=== PATIENT | female | born 1985 | race Hispanic/Latino ===

== ENCOUNTER 2017-11-26 00:39 | Emergency (ER) | payer BC ==
--- NOTE | 2017-11-26 01:23 | ED PDOC ---
HPI: Female Pain Time Seen by Provider: 11/26/17 00:48 Chief Complaint (Nursing): Female Genitourinary Chief Complaint (Provider): Possible History Per: Patient History/Exam Limitations: no limitations Onset/Duration Of Symptoms: Days (3 days) Current Symptoms Are (Timing): Still Present Additional Complaint(s): 32 yo female with a ,P:0, A:0, presents to the ED complaining of vaginal bleeding and cramping, onset of 3 days ago. Patient reports the pain intensifying last night and states that even though she soaked through one pad, she was still having more bleeding. Patient currently states that the pain and bleeding are starting to resolve, and notes that the pain was worse on the right side of her abdomen prior. She denies any nausea, vomiting, or urinary symptoms. Past Medical History Reviewed: Historical Data, Nursing Documentation, Vital Signs Vital Signs: Last Vital Signs Temp 98.5 F 11/26/17 00:52 Pulse 75 11/26/17 00:52 Resp 16 11/26/17 00:52 BP 120/80 11/26/17 00:52 Pulse Ox 100 11/26/17 00:52 - Medical History PMH: No Chronic Diseases - Surgical History Surgical History: No Surg Hx - Family History Family History: States: Unknown Family Hx - Living Arrangements Living Arrangements: With Family - Social History Current smoker - smoking cessation education provided: No Ex-Smoker (has not smoked in the last 12 months): No Alcohol: None Drugs: Denies - Allergies Allergies/Adverse Reactions: Allergies Allergy/AdvReac Type Severity Reaction Status Date / Time No Known Allergies Allergy Verified 11/26/17 00:52 Review of Systems ROS Statement: Except As Marked, All Systems Reviewed And Found Negative Gastrointestinal: Positive for: Abdominal Pain. Negative for: Nausea, Vomiting , Diarrhea Genitourinary Female: Positive for: Vaginal Bleeding. Negative for: Dysuria, Frequency, Incontinence, Hematuria Physical Exam - Reviewed Nursing Documentation Reviewed: Yes Vital Signs Reviewed: Yes - Physical Exam Appears: Positive for: Well, Non-toxic, No Acute Distress Head Exam: Positive for: ATRAUMATIC, NORMAL INSPECTION, NORMOCEPHALIC Skin: Positive for: Normal Color, Warm, DRY Eye Exam: Positive for: EOMI, Normal appearance, PERRL ENT: Positive for: Normal ENT Inspection Neck: Positive for: Normal Cardiovascular/Chest: Positive for: Regular Rate, Rhythm. Negative for: Murmur Respiratory: Positive for: Normal Breath Sounds. Negative for: Respiratory Distress Gastrointestinal/Abdominal: Positive for: Normal Exam, Soft. 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 Negative for: Tender Adnexa Back: Positive for: Normal Inspection Extremity: Positive for: Normal ROM. Negative for: Pedal Edema, Deformity Neurologic/Psych: Positive for: Alert, Oriented (x3). Negative for: Motor/ Sensory Deficits - ECG O2 Sat by Pulse Oximetry: 100 (RA) Pulse Ox Interpretation: Normal Medical Decision Making Medical Decision Making: Time: -- Impression: --, P:0, A:0 at () weeks presents with vaginal bleeding in Plan: --beta-hcg, quantitative --ED urine Dip --Upreg --chlamydia/GC RNA Reassess -- UP negative; likely completed . Will confirm serum HCG. --2:21 Beta-hcg 13, by dates patient is >4 weeks . Explained to patient that likely she is miscarrying but for official confirmation she will need serial beta testing and ultrasound as warranted. Explained to patient that she needs repeat testing in 48 hours to check for doubling, if beta is increasing will need u/s to rule out ectopic at that time as warranted by patient's OB. States she will call to arrange for followup with her OB tomorrow. Scribe Attestation: Documented by Jeramie Esteves acting as a scribe for Jake Neves MD. Provider Attestation: All medical record entries made by the Scribe were at my direction and personally dictated by me. I have reviewed the chart and agree that the record accurately reflects my personal performance of the history, physical exam, medical decision making, and the department course for this patient. I have also personally directed, reviewed, and agree with the discharge instructions and disposition. Disposition - Clinical Impression Clinical Impression: Vaginal bleeding, Threatened miscarriage - Disposition [facility] Disposition: Routine/Home Disposition Time: 02:30 Condition: STABLE Additional Instructions: Please followup with your OB in 2 days for repeat beta-HCG ( blood test ) testing and ultrasound as needed/indicated by your OB. Instructions: Threatened Miscarriage, Bleeding With Forms: [employer] (Greek)
[2017-11-26 12:04] VITALS: BP 120/80; PULSE 75; RESP 16; TEMP 98.5; O2SAT 100; BMI 21.9
== END 2017-11-26 02:42 | disposition home or self-care (01) ==
LOC: H.ER 00:39
DX: O20.0 Threatened abortion (principal); Z3A.01 Less than 8 weeks gestation of pregnancy